=== PATIENT | female | born 1955 | race Caucasian/White ===

== ENCOUNTER 2020-05-22 08:07 | Inpatient (IN) | payer OTHER ==
[~2020-05-22] VITALS: Ht 157.5 cm; Wt 97.0 kg
[2020-05-22] MEDS ORDERED: ONDANSETRON 2MG/ML, 2ML ONE ×2 (08:43→13:07)
[2020-05-22] MEDS ORDERED: MORPHINE SULFATE 4 MG/ML, 1ML ONE (08:44)
[2020-05-22] MEDS ORDERED: MAALOX/HYOSCYAMINE/LIDOCAINE 45 ML BTL ONE (08:44)
[2020-05-22] MEDS ORDERED: MAALOX/HYOSCYAMINE/LIDOCAINE 45 ML BTL PO ONE (09:00)
[2020-05-22] MEDS ORDERED: MORPHINE SULFATE 4 MG/ML, 1ML IVPush PRN (09:00)
[2020-05-22] MEDS ORDERED: ONDANSETRON 2MG/ML, 2ML IVPush ONE (09:00)
[2020-05-22] MEDS ORDERED: SODIUM CHLORIDE FLUSH 10ML SYR IVF ONE (09:00)
[2020-05-22 09:06] LABS: BASOPHILS % (AUTO) 1 % (0-1); EOSINOPHILS % (AUTO) 1 % (1-7); LYMPHOCYTES % (AUTO) 16 % (22-44); MEAN CORPUSCULAR HEMOGLOBIN 29.7 pg (27.0-34.8); MEAN CORPUSCULAR HGB CONC 33.6 g/dL (32.4-35.8); MEAN PLATELET VOLUME 6.9 fL (7.4-10.4); MONOCYTES % (AUTO) 4 % (2-9); NEUTROPHILS % (AUTO) 80 % (42-75); PLATELET COUNT 309 x10^3/uL (130-400); RED BLOOD COUNT 5.05 x10^6/uL (3.82-5.3); RED CELL DISTRIBUTION WIDTH 13.3 % (9.6-15.2)
[2020-05-22 09:07] LABS: MD NO
--- NOTE | 2020-05-22 09:08 | NUR ---
PT TO ALL MONITORS, PIV ACCESS INITIATED AND PT MEDICATED PER MAR. US NOW AT BS, ERMD IN TO UPDATE PT ON POC
[2020-05-22 09:21] LABS: ALBUMIN 3.6 g/dL (3.4-5.0); ANION GAP 7 mmol/L (5-15); CALCIUM 8.5 mg/dL (8.5-10.1); CHLORIDE 108 mmol/L (98-107)
[2020-05-22 09:26] LABS: CREATININE 0.87 mg/dL (0.55-1.02)
[2020-05-22 09:27] LABS: ALANINE AMINOTRANSFERASE 22 U/L (12-78); ALKALINE PHOSPHATASE 83 U/L (45-117); BILIRUBIN,TOTAL 0.7 mg/dL (0.2-1.0); TOTAL PROTEIN 7.5 g/dL (6.4-8.2); TROPONIN I < 0.015 ng/mL (0.000-0.045)
[2020-05-22] MEDS ORDERED: HYDROmorphone 1 MG/ML, 1ML INJ IV ONE (10:30)
[2020-05-22] MEDS ORDERED: CEFOTETAN PMX 1GM/50ML 50 ML IVPB ONE (10:30)
--- NOTE | 2020-05-22 10:37 | NUR ---
MED REQUEST SENT TO PHARM FOR ABX
--- NOTE | 2020-05-22 10:46 | NUR ---
PER ERP NO BC NEEDED
[2020-05-22] MEDS ORDERED: ONDANSETRON ODT 4 MG PO PRN (12:00)
[2020-05-22] MEDS ORDERED: hydrALAzine 20 MG/ML, 1ML IVPush PRN (12:00)
[2020-05-22] MEDS ORDERED: GUAIFENESIN/DM 200-20MG, 10ML UDC PO PRN (12:00)
[2020-05-22] MEDS ORDERED: ENALAPRILAT 1.25 MG/ML, 2ML IVPush PRN (12:00)
[2020-05-22] MEDS ORDERED: ONDANSETRON 2MG/ML, 2ML IVPush PRN (12:00)
[2020-05-22] MEDS ORDERED: BUTALB/APAP/CAFFEINE 50MG/325MG/40MG PO PRN (12:00)
[2020-05-22] MEDS ORDERED: HYDROmorphone 2 MG/ML, 1ML IVPush PRN (12:00)
[2020-05-22] MEDS ORDERED: BACLOFEN 10 MG TABLET PO PRN (12:00)
[2020-05-22] MEDS ORDERED: EPINEPHRINE 1 MG/ML, 1ML ONE (12:34)
[2020-05-22] MEDS ORDERED: BUPIVACAINE/PF 0.5% ONE (12:34)
--- NOTE | 2020-05-22 12:40 | NUR ---
ATTEMPT TO CALL REPORT TO RECIEVING RN ON FLOOR, UNABLE TO REACH X2. REPORT TO OR
[2020-05-22] MEDS ORDERED: FENTANYL PF 100 MCG/2ML ONE (12:48)
[2020-05-22] MEDS ORDERED: MIDAZOLAM 1 MG/ML, 2ML ONE (12:48)
[2020-05-22] MEDS ORDERED: ROCURONIUM 10MG/ML,5ML ONE (13:07)
[2020-05-22] MEDS ORDERED: SUCCINYLCHOLINE 20 MG/ML, 10ML ONE (13:07)
[2020-05-22] MEDS ORDERED: PROPOFOL 10 MG/ML, 20ML ONE (13:07)
[2020-05-22] MEDS ORDERED: LIDOCAINE-MPF 2% ,5ML ONE (13:07)
[2020-05-22] MEDS ORDERED: SUGAMMADEX 200 MG/2 ML IVPush ONE (13:07)
[2020-05-22] MEDS ORDERED: DEXAMETHASONE 4 MG/ML, 5ML ONE (13:07)
[2020-05-22] MEDS ORDERED: OXYcodone 5 MG/5 ML ORAL.SOL UDC PO PRN (13:30)
[2020-05-22] MEDS ORDERED: HYDROcodone/APAP 7.5-325MG/15ML UDC PO PRN (13:30)
[2020-05-22] MEDS ORDERED: PROMETHAZINE 25 MG/ML, 1ML IVPush PRN (13:30)
[2020-05-22] MEDS ORDERED: PROMETHAZINE 12.5 MG SUPP PR PRN (13:30)
[2020-05-22] MEDS ORDERED: HYDROmorphone 1 MG/ML, 1ML INJ IVPush PRN (13:30)
[2020-05-22] MEDS ORDERED: MEPERIDINE/PF 25MG/0.5ML IVPush PRN (13:30)
[2020-05-22] MEDS ORDERED: FENTANYL PF 100 MCG/2ML IV PRN (13:30)
[2020-05-22] MEDS ORDERED: KETOROLAC 30 MG/1 ML IVPush PRN (13:30)
[2020-05-22] MEDS ORDERED: BUPIVACAINE/PF-EPI 0.5% 1:200K INFIL ONE (13:41)
[2020-05-22] MEDS: ACETAMINOPHEN 325 MG TABLET PO PRN ×2 (14:30→22:09)
[2020-05-22] MEDS ORDERED: ACETAMINOPHEN 650 MG/20.3 ML UDC ONE (14:39)
[2020-05-22] MEDS ORDERED: OXYcodone 5 MG/5 ML ORAL.SOL UDC ONE (14:39)
[2020-05-22 17:11] VITALS: BP 139/82
[2020-05-22] MEDS: ENOXAPARIN 40 MG/0.4 ML SQ SCH (17:12)
[2020-05-22] MEDS ORDERED: DIPH25CA61 PO (17:37)
[2020-05-22] MEDS ORDERED: AMLO-150 PO (17:37)
[2020-05-22] MEDS ORDERED: FLUT9.9S INH (17:37)
[2020-05-22] MEDS ORDERED: ASPI81TA45 PO (17:37)
[2020-05-22] MEDS ORDERED: MELATONIN 5 MG TABLET PO SCH (21:00)
[2020-05-22 21:46] VITALS: BP 134/78
[2020-05-23 01:15] VITALS: BP 119/81
[2020-05-23 04:45] VITALS: BP 138/82
[2020-05-23 06:30] LABS: CHLORIDE 105 mmol/L (98-107)
[2020-05-23 06:31] LABS: BASOPHILS % (AUTO) 0 % (0-1); EOSINOPHILS % (AUTO) 0 % (1-7); LYMPHOCYTES % (AUTO) 14 % (22-44); MEAN CORPUSCULAR HEMOGLOBIN 29.8 pg (27.0-34.8); MEAN CORPUSCULAR HGB CONC 33.8 g/dL (32.4-35.8); MEAN PLATELET VOLUME 7.1 fL (7.4-10.4); MONOCYTES % (AUTO) 5 % (2-9); NEUTROPHILS % (AUTO) 80 % (42-75); PLATELET COUNT 280 x10^3/uL (130-400); RED BLOOD COUNT 4.74 x10^6/uL (3.82-5.3); RED CELL DISTRIBUTION WIDTH 13.4 % (9.6-15.2)
[2020-05-23 06:34] LABS: ANION GAP 7 mmol/L (5-15); CREATININE 0.95 mg/dL (0.55-1.02)
[2020-05-23 06:50] LABS: MD NO
[2020-05-23 08:21] VITALS: BP 120/78
[2020-05-23] MEDS: SENNA/DOCUSATE TABLET PO SCH ×2 (09:00→12:13)
[2020-05-23] MEDS: ACETAMINOPHEN 325 MG TABLET PO PRN (12:13)
[2020-05-23 14:11] VITALS: BP 121/79
[2020-05-23] MEDS ORDERED: OXYC1TAB14 PO (16:27)
[2020-05-23] MEDS: ENOXAPARIN 40 MG/0.4 ML SQ SCH (16:36)
== END 2020-05-23 17:42 | disposition home or self-care (01) | DRG 419 ==
LOC: ED 09:38 → EDIP 10:17 → 3N 11:47 → 4NE 15:34
PROVIDERS: ADMIT Internal Medicine Infectious Disease; ATTEND Family Medicine
PROC: 0FT44ZZ Resection of Gallbladder, Percutaneous Endoscopic Approach (ICD-10-PCS; principal; 2020-05-22 12:15)
DX: K80.00 Calculus of gallbladder with acute cholecystitis without obstruction (principal); Z20.822 Contact with and (suspected) exposure to COVID-19; E66.01 Morbid (severe) obesity due to excess calories; R73.9 Hyperglycemia, unspecified; I10 Essential (primary) hypertension; Z90.710 Acquired absence of both cervix and uterus; Z83.3 Family history of diabetes mellitus; Z82.49 Family history of ischemic heart disease and other diseases of the circulatory system; Z68.39 Body mass index [BMI] 39.0-39.9, adult
CPT/HCPCS: 36415; 96374; 96375; 96376; 99285; J3490; S0020; 71045; 76700; 80048; 80053; 83690; 83735; 83880; 84484; 85025; 87635; 88304; 93005; G0378; J0171; J1100; J1650; J2250; J2405; J2704; J3010; J0330; J2270

== ENCOUNTER 2020-06-14 17:00 | Emergency (ER) | payer OTHER ==
[~2020-06-14] VITALS: Ht 157.5 cm; Wt 94.9 kg
[~2020-06-14 17:00] MED LIST: AMLO-150 PO; ASPI81TA45 PO; DIPH25CA61 PO; FLUT9.9S INH; OXYC1TAB14 PO
--- NOTE | 2020-06-14 17:19 | NUR ---
Pt reports they started having chest pain midsternum, the same pain she had when she had her gallbladder removed 05/22/20. Pt reports she also feels like something is stuck in her throat or like she needs to burp. Pain 01/07, started about 1630. Pt denies cardiac hx.
--- NOTE | 2020-06-14 17:37 | NUR ---
Provider at bedside.
[2020-06-14 18:22] LABS: BASOPHILS % (AUTO) 1 % (0-1); EOSINOPHILS % (AUTO) 4 % (1-7); LYMPHOCYTES % (AUTO) 18 % (22-44); MEAN CORPUSCULAR HGB CONC 34.2 g/dL (32.4-35.8); MONOCYTES % (AUTO) 4 % (2-9); NEUTROPHILS % (AUTO) 73 % (42-75); PLATELET COUNT 332 x10^3/uL (130-400); RED BLOOD COUNT 4.85 x10^6/uL (3.82-5.3); RED CELL DISTRIBUTION WIDTH 13.6 % (9.6-15.2)
[2020-06-14 18:25] LABS: MD NO
--- NOTE | 2020-06-14 18:26 | NUR ---
Pt reports pain has subsided.
[2020-06-14 18:31] LABS: ALBUMIN 3.3 g/dL (3.4-5.0); ANION GAP 6 mmol/L (5-15); CALCIUM 8.9 mg/dL (8.5-10.1); CHLORIDE 110 mmol/L (98-107)
[2020-06-14 18:37] LABS: ALANINE AMINOTRANSFERASE 26 U/L (12-78); ALKALINE PHOSPHATASE 84 U/L (45-117); BILIRUBIN,TOTAL 0.5 mg/dL (0.2-1.0); CREATININE 0.87 mg/dL (0.55-1.02); TOTAL PROTEIN 7.2 g/dL (6.4-8.2); TROPONIN I < 0.015 ng/mL (0.000-0.045)
--- NOTE | 2020-06-14 19:16 | NUR ---
Provider at bedside.
[2020-06-14 19:21] VITALS: BP 128/88
== END 2020-06-14 19:56 | disposition home or self-care (01) ==
LOC: ED 19:30
DX: K21.00 Gastro-esophageal reflux disease with esophagitis, without bleeding (principal); R07.89 Other chest pain; R94.31 Abnormal electrocardiogram [ECG] [EKG]; I10 Essential (primary) hypertension; J45.909 Unspecified asthma, uncomplicated; Z90.49 Acquired absence of other specified parts of digestive tract; Z87.891 Personal history of nicotine dependence
CPT/HCPCS: 36415; 71045; 80053; 83690; 84484; 85025; 93005; 99285

== ENCOUNTER → 2020-08-27 | Outpatient (CLI) | payer OTHER | END | disposition home or self-care (01) | LOC: CFH 10:00 | PROVIDERS: ATTEND Internal Medicine Cardiovascular Disease | DX: I08.2 Rheumatic disorders of both aortic and tricuspid valves (principal); I10 Essential (primary) hypertension; R07.89 Other chest pain | CPT/HCPCS: 93306 ==